=== PATIENT | female | born 1995 | race African-American/Black ===

== ENCOUNTER 2019-07-03 17:22 | Inpatient (IN) ==
[2019-07-03 18:27] LABS: Apearance,Urine CLOUDY (Clear); Bilirubin,Urine Negative (Negative); Blood, Urine Negative (Negative); Glucose,Urine (UA) Negative (Negative); Ketones,Urine Negative (Negative); Mucus,Urine Many /LPF (Occasional); Nitrite,Urine Negative (Negative); Protein,Urine 30 MG/DL; RBC,Urine 2 /HPF (0-4); Squamous Epithelial Cell,Urine Many /HPF (0-10); Urine Specific Gravity 1.028 (1.001-1.035); WBC,Urine 2 /HPF (0-6)
[2019-07-03 18:28] LABS: Urine Color Dark Yellow (Yellow)
[2019-07-03] MEDS ORDERED: LACTATED RINGERS 1,000 ML IV ONE (18:49)
[2019-07-03] MEDS: LACTATED RINGERS 1,000 ML IV SCH ×2 (19:30→19:40)
[2019-07-03] MEDS ORDERED: ONDANSETRON 4 MG/2 ML VIAL IV PRN (19:33)
[2019-07-03] MEDS ORDERED: MEPERIDINE 50 MG/1 ML VIAL IV PRN (19:33)
[2019-07-03] MEDS ORDERED: MAGNESIUM SULF RIDER 4 GM in PREMIX 1 EACH IV ONE (19:36)
[2019-07-03 20:02] LABS: Basophils # 0.1 10*3/uL (0.0-0.2); Basophils % 0.8 % (0.0-0.8); Eosinophils # 0.1 10*3/uL (0.0-0.87); Eosinophils % 1.4 % (0.00-10.9); Hematocrit 31.5 VOL% (35.7-47.0); Hemoglobin 9.3 GM/DL (12.0-16.0); Immature Granulocytes % 0.8 %; Immature Granulocytes Absolute 0.05 #; Lymphocytes # 1.9 10*3/uL (1.4-4.0); Lymphocytes % 30.6 % (21.3-54.2); Mean Corpuscular HGB Conc 29.5 GM/DL (32-36); Mean Corpuscular Volume 83.3 FL (87-102); Mean Platelet Volume 12.4 FL (9.6-12.0); Monocytes % 8.7 % (1.7-12.7); NRBC # 0.03 10*3/uL; Neutrophils % 57.7 % (38.7-73.9); Platelet Count 223 T/CUMM (130-400); Red Blood Count 3.78 MC/CUMM (3.8-5.5); Red Cell Distribution Width 14.9 % (9.3-17.3); White Blood Count 6.3 T/CUMM (4-12)
[2019-07-03 20:21] LABS: Albumin 2.6 G/DL (3.4-5.0); Bilirubin,Total 0.4 MG/DL (0.2-1.0); Calcium 8.1 MG/DL (8.5-10.1); Osmolality,Calculated 268.8 MOS/KG (273-304); Total Protein 6.7 G/DL (6.4-8.3)
[2019-07-03] MEDS: BETAMETH SODIUM PHOS/ACETATE 30 MG/5 ML VIAL IM SCH (20:27)
[2019-07-03] MEDS: ERYTHROMYCIN INJ 500 MG in SODIUM CHLORIDE 0.9% 100 ML IV SCH (20:35)
[2019-07-03] MEDS: MAGNESIUM SULF DRIP 40 GM/1,000 ML ML IV SCH (20:51)
[2019-07-03] MEDS: AMPICILLIN INJ 1,000 MG in SODIUM CHLORIDE 0.9% 100 ML IV SCH (22:01)
[2019-07-04] MEDS: ERYTHROMYCIN INJ 500 MG in SODIUM CHLORIDE 0.9% 100 ML IV SCH ×4 (02:03→20:25)
[2019-07-04 02:18] LABS: Apearance,Urine CLEAR (Clear); Bilirubin,Urine Negative (Negative); Blood, Urine Negative (Negative); Glucose,Urine (UA) Negative (Negative); Ketones,Urine 20 mg/dL (Negative); Mucus,Urine Few /LPF (Occasional); Nitrite,Urine Negative (Negative); Protein,Urine Negative; RBC,Urine 1 /HPF (0-4); Squamous Epithelial Cell,Urine Occasional /HPF (0-10); Urine Color Yellow (Yellow); Urine Specific Gravity 1.024 (1.001-1.035); WBC,Urine 1 /HPF (0-6)
[2019-07-04] MEDS: AMPICILLIN INJ 1,000 MG in SODIUM CHLORIDE 0.9% 100 ML IV SCH ×4 (04:04→21:58)
[2019-07-04] MEDS: LACTATED RINGERS 1,000 ML IV SCH ×2 (14:45)
[2019-07-04] MEDS: BETAMETH SODIUM PHOS/ACETATE 30 MG/5 ML VIAL IM SCH (20:31)
[2019-07-04] MEDS ORDERED: PROMETHAZINE 25 MG/1 ML VIAL IM ONE (21:41)
[2019-07-04] MEDS ORDERED: PROMETHAZINE 25 MG/1 ML VIAL ONE (21:42)
[2019-07-05] MEDS: ERYTHROMYCIN INJ 500 MG in SODIUM CHLORIDE 0.9% 100 ML IV SCH ×2 (02:21→08:37)
[2019-07-05] MEDS: AMPICILLIN INJ 1,000 MG in SODIUM CHLORIDE 0.9% 100 ML IV SCH ×2 (03:40→11:06)
[2019-07-05] MEDS: MAGNESIUM SULF DRIP 40 GM/1,000 ML ML IV SCH ×2 (03:41→07:31)
[2019-07-05] MEDS: LACTATED RINGERS 1,000 ML IV SCH ×5 (03:41→08:45)
[2019-07-05] MEDS ORDERED: ONDANSETRON 4 MG TABLET PO PRN (09:27)
[2019-07-05] MEDS: MAGNESIUM GLUCONATE 500 MG TABLET PO SCH ×4 (09:48→21:09)
[2019-07-06] MEDS: MAGNESIUM GLUCONATE 500 MG TABLET PO SCH ×6 (01:00→21:02)
[2019-07-07] MEDS: MAGNESIUM GLUCONATE 500 MG TABLET PO SCH ×3 (01:11→08:45)
[2019-07-07 04:26] VITALS: BP 89/54
== END 2019-07-07 09:04 | disposition home or self-care (01) | DRG 563 ==
LOC: N.LDOUT 17:22 → N.LD 17:29
PROVIDERS: ADMIT Obstetrics & Gynecology; ATTEND Obstetrics & Gynecology

== ENCOUNTER 2019-07-09 06:26 | Inpatient (IN) ==
[2019-07-09] MEDS ORDERED: CITRIC ACID/SODIUM CITRATE 30 ML UDCUP PO ONE (07:52)
[2019-07-09] MEDS ORDERED: FAMOTIDINE 20 MG/2 ML VIAL IV ONE (07:52)
[2019-07-09] MEDS ORDERED: ceFAZolin 2,000 MG in PREMIX 1 EACH IV ONE (07:52)
[2019-07-09] MEDS ORDERED: OXYTOCIN/LR 20 UNIT/1,000 ML BAG IV ONE ×3 (07:54→12:50)
[2019-07-09] MEDS ORDERED: LACTATED RINGERS 1,000 ML IV SCH (08:00)
[2019-07-09 08:23] LABS: Basophils % 0.5 % (0.0-0.8); Eosinophils # 0.2 10*3/uL (0.0-0.87); Eosinophils % 2.3 % (0.00-10.9); Hematocrit 28.8 VOL% (35.7-47.0); Hemoglobin 8.6 GM/DL (12.0-16.0); Immature Granulocytes % 0.8 %; Immature Granulocytes Absolute 0.05 #; Lymphocytes # 2.6 10*3/uL (1.4-4.0); Lymphocytes % 38.8 % (21.3-54.2); Mean Corpuscular HGB Conc 29.9 GM/DL (32-36); Mean Platelet Volume 12.1 FL (9.6-12.0); Monocytes % 10.4 % (1.7-12.7); NRBC # 0.09 10*3/uL; Neutrophils % 47.2 % (38.7-73.9); Platelet Count 200 T/CUMM (130-400); Red Cell Distribution Width 15.3 % (9.3-17.3); White Blood Count 6.6 T/CUMM (4-12)
[2019-07-09] MEDS ORDERED: oxyCODONE/ACETAMINOPHEN 5-325 MG TABLET PO PRN (10:19)
[2019-07-09] MEDS ORDERED: MEASLES/MUMPS/RUBELLA VACCINE 0.5 ML VIAL SUBCUT ONE (10:19)
[2019-07-09] MEDS ORDERED: BISACODYL 10 MG SUPP RECTAL PRN (10:19)
[2019-07-09] MEDS ORDERED: WITCH HAZEL PADS 100/JAR TOP PRN (10:19)
[2019-07-09] MEDS ORDERED: ACETAMINOPHEN 325 MG TABLET PO PRN (10:19)
[2019-07-09] MEDS ORDERED: BENZOCAINE 20%/MENTHOL 0.5% SPRAY 56 GM CAN TOP PRN (10:19)
[2019-07-09] MEDS ORDERED: ONDANSETRON 4 MG/2 ML VIAL IV PRN (10:19)
[2019-07-09] MEDS ORDERED: HYDROCORTISONE 2.5% RECTAL CREAM 30 GM TUBE TOP PRN (10:19)
[2019-07-09] MEDS ORDERED: RHO(D) IMMUNE GLOBULIN 300 MCG SYRINGE IM ONE (10:19)
[2019-07-09] MEDS ORDERED: LANOLIN 50% CREAM 0.3 OZ TUBE TOP PRN (10:19)
[2019-07-09] MEDS ORDERED: DIPH/TET/ACEL PERT BOOSTER VACCINE 0.5 ML VIAL IM ONE (10:19)
[2019-07-09] MEDS ORDERED: BUPIVACAINE SPINAL 0.75% 2 ML AMP SPINAL ONE (10:49)
[2019-07-09] MEDS ORDERED: BUPIVACAINE MPF 0.25% 30 ML VIAL ONE (10:50)
[2019-07-09] MEDS ORDERED: ONDANSETRON 4 MG/2 ML VIAL ONE (10:50)
[2019-07-09] MEDS ORDERED: PHENYLEPHRINE 1 MG/10 ML SYRINGE IV ONE (10:50)
[2019-07-09] MEDS ORDERED: MORPHINE 10 MG/10 ML VIAL ONE (10:50)
[2019-07-09 11:08] LABS: Apearance,Urine CLEAR (Clear); Bacteria,Urine Occasional /HPF (Few); Bilirubin,Urine Negative (Negative); Blood, Urine Negative (Negative); Glucose,Urine (UA) Negative (Negative); Ketones,Urine Negative (Negative); Mucus,Urine Occasional /LPF (Occasional); Nitrite,Urine Negative (Negative); Protein,Urine Negative; RBC,Urine 1 /HPF (0-4); Urine Color Straw (Yellow); Urine Specific Gravity 1.008 (1.001-1.035); Urine Urobilinogen < 2.0 EU/DL (0.2-1.0)
[2019-07-09] MEDS ORDERED: METHYLERGONOVINE 0.2 MG/1 ML AMP ONE (14:15)
[2019-07-09] MEDS ORDERED: METHYLERGONOVINE 0.2 MG/1 ML AMP IM ONE (14:17)
[2019-07-09] MEDS: ceFAZolin 1,000 MG in SYRINGE 1 EACH IV SCH (18:06)
[2019-07-09] MEDS: DOCUSATE SODIUM 100 MG CAPSULE PO SCH (21:11)
[2019-07-09] MEDS: FERROUS SULFATE 325 MG TABLET PO SCH (21:11)
[2019-07-10] MEDS: ceFAZolin 1,000 MG in SYRINGE 1 EACH IV SCH (01:55)
[2019-07-10] MEDS: IBUPROFEN 800 MG TABLET PO PRN ×3 (02:48→19:59)
[2019-07-10] MEDS: oxyCODONE/ACETAMINOPHEN 5-325 MG TABLET PO PRN ×3 (02:49→19:57)
[2019-07-10 04:52] LABS: Basophils % 0.2 % (0.0-0.8); Eosinophils # 0.1 10*3/uL (0.0-0.87); Eosinophils % 0.6 % (0.00-10.9); Hematocrit 25.7 VOL% (35.7-47.0); Immature Granulocytes % 0.7 %; Lymphocytes # 1.9 10*3/uL (1.4-4.0); Mean Corpuscular HGB Conc 31.1 GM/DL (32-36); Mean Corpuscular Volume 78.1 FL (87-102); Mean Platelet Volume 11.7 FL (9.6-12.0); Monocytes % 9.1 % (1.7-12.7); NRBC # 0.05 10*3/uL; Neutrophils % 76.4 % (38.7-73.9); Platelet Count 182 T/CUMM (130-400); Red Blood Count 3.29 MC/CUMM (3.8-5.5); Red Cell Distribution Width 15.3 % (9.3-17.3); White Blood Count 14.3 T/CUMM (4-12)
[2019-07-10] MEDS: FERROUS SULFATE 325 MG TABLET PO SCH ×2 (09:02→19:59)
[2019-07-10] MEDS: DOCUSATE SODIUM 100 MG CAPSULE PO SCH ×2 (09:02→19:59)
[2019-07-10] MEDS: MAGNESIUM HYDROXIDE SUSP 30 ML UDCUP PO PRN (09:08)
[2019-07-11] MEDS: MAGNESIUM HYDROXIDE SUSP 30 ML UDCUP PO PRN (09:47)
[2019-07-11] MEDS: DOCUSATE SODIUM 100 MG CAPSULE PO SCH (09:47)
[2019-07-11] MEDS: FERROUS SULFATE 325 MG TABLET PO SCH (09:47)
[2019-07-11] MEDS: oxyCODONE/ACETAMINOPHEN 5-325 MG TABLET PO PRN (09:48)
[2019-07-11 11:33] VITALS: BP 104/65
[2019-07-11] MEDS ORDERED: oxyCODONE/ACETAMINOPHEN 5-325 MG TABLET PO PRN (13:38)
[2019-07-11] MEDS: IBUPROFEN 800 MG TABLET PO PRN (13:43)
== END 2019-07-11 16:10 | disposition home or self-care (01) | DRG 540 ==
LOC: N.LDOUT 06:26 → N.LD 06:28 → N.OB 15:26
PROVIDERS: ADMIT Specialist; ATTEND Specialist
PROC: LDCSECT (ICD-10-PCS; 2019-07-09 09:00)